=== PATIENT | female | born 1990 | race African-American/Black ===

== ENCOUNTER 2017-08-18 10:49 | Emergency (ER) | payer OTHER ==
[~2017-08-18] VITALS: Ht 167.6 cm; Wt 61.5 kg
[~2017-08-18 10:49] MED LIST: ABILIFY30 MG PO; ALPRAZOLAM1 MG PO; BACTRIM,SEPT1 TABLET PO; BUPROPION XL150 MG PO; CIPRO500 MG PO; CLARITIN10 MG PO; CLEOCIN300 MG PO; CLINDAMYCIN HC300 MG PO; COLACE100 MG PO; DEPO PROVERA IM; FLAGYL500 MG PO; FLEXERIL10 MG PO; GABAPENTIN100 MG PO; IBUPROFEN600 MG PO; IBUPROFEN800 MG PO; INDOCIN25 MG PO; KEFLEX500 MG PO; LEXAPRO20 MG PO; MACROBID100 MG PO; MOTRIN800 MG PO; NAPROSYN500 MG PO; NAPROXEN500 MG PO; NORCO 5/3251 TABLET PO; PERCOCET 5/31 TABLET PO; PRILOSEC20 MG PO; SERTRALINE HCL100 MG PO; TRAMADOL HCL50 MG PO; ULTRACET1 TABLET PO; ULTRAM50 MG PO; XANAX1 MG PO; XANAX2 MG PO; ZOFRAN4 MG PO
[2017-08-18 13:25] LABS: EOSINOPHIL (%) 0 % (0-5); HEMATOCRIT 31.9 % (36.0-46.0); IMMATURE GRANULOCYTE (%) 0.1 % (0.0-0.7); LYMPHOCYTE COUNT 2.7 K/uL (1.0-2.8); MCH 28.6 PG (29.0-34.0); MCHC 32.9 G/DL (30.0-36.0); MCV 86.9 FL (83-99); MEAN PLAT.VOLUME 9.4 uM^3 (9.5-12.4); MONOCYTE (%) 9.1 % (3-12); MONOCYTE COUNT 0.7 K/uL (0-0.8); NEUTROPHIL (%) 54.5 % (45-76); PLATELET COUNT 186 K/uL (156-360); RBC DIS.WIDTH-CV 13.2 % (11.8-14.6); RBC DIS.WIDTH-SD 42.3 % (39-53); RED BLOOD COUNT 3.67 M/uL (3.80-5.20); WHITE BLOOD COUNT 7.4 K/uL (4.1-10.2)
[2017-08-18 13:38] LABS: CHLORIDE 104 mEq/L (99-109); SODIUM 136 mEq/L (136-147)
[2017-08-18 13:40] LABS: GLUCOSE 96 mg/dL (70-99)
[2017-08-18 13:41] LABS: ANION GAP 10 MEQ/L (2-14)
[2017-08-18 13:42] LABS: TOTAL BILIRUBIN 0.3 mg/dL (0.0-1.0)
[2017-08-18 13:43] LABS: ALKALINE PHOSPHATASE 42 IU/L (3-129)
[2017-08-18 13:44] LABS: GFR ESTIMATE (CALCULATED) > 59 mL/min/
[2017-08-18 13:45] LABS: UREA NITROGEN (BUN) 11 mg/dL (9-23)
[2017-08-18] MEDS ORDERED: NAPROXEN500 MG PO (15:21)
[2017-08-18 15:51] VITALS: BP 110/62
== END 2017-08-18 15:52 | disposition home or self-care (01) ==
LOC: EME 10:49
PROVIDERS: Physician Assistant
DX: M79.605 Pain in left leg (principal); M79.604 Pain in right leg; G89.29 Other chronic pain; F17.200 Nicotine dependence, unspecified, uncomplicated
CPT/HCPCS: 80053; 85025; 93970; 99281; 99284; J1885